=== PATIENT | female | born 1935 | race Caucasian/White ===

== ENCOUNTER 2018-08-29 14:16 | Emergency (ER) | payer MEDICARE ==
[~2018-08-29] VITALS: Ht 167.6 cm; Wt 97.5 kg
[2018-08-29] MEDS ORDERED: AMLODIPINE BESY10 MG PO (14:43)
[2018-08-29] MEDS ORDERED: HYDROCHLOROTHIA25 M1 PO (14:43)
[2018-08-29] MEDS ORDERED: LOPRESSOR25 PO (14:43)
[2018-08-29] MEDS ORDERED: ECOTRIN325 MG PO (14:44)
[2018-08-29] MEDS ORDERED: FISH OIL 1,001000 M2 PO (14:44)
[2018-08-29] MEDS ORDERED: CRESTOR20 MG PO (14:44)
[2018-08-29] MEDS ORDERED: VITAMIN E400 UNIT PO (14:47)
[2018-08-29] MEDS ORDERED: VITAMIN D1000 UNI1 PO (14:48)
[2018-08-29] MEDS ORDERED: VITAMIN B-12500 MCG PO (14:48)
[2018-08-29] MEDS ORDERED: BETA CAROT10000 UNIT PO (14:48)
[2018-08-29] MEDS ORDERED: CALCIUM PO (14:49)
[2018-08-29] MEDS ORDERED: GARLIC1 EACH PO (14:50)
[2018-08-29] MEDS ORDERED: IRON325 PO (14:50)
[2018-08-29 15:32] LABS: ABSOLUTE BASOPHILS 0.1 thou/uL (0.0-0.2); ABSOLUTE LYMPHOCYTES 1.6 thou/uL (0.8-5.3); ABSOLUTE MONOCYTES 0.9 thou/uL (0.0-1.2); ABSOLUTE NEUTROPHILS 6.7 thou/uL (1.6-8.1); BASOPHILS 1.2 %; EOSINOPHILS 0.5 %; HEMATOCRIT 38.9 % (37.0-47.0); LYMPHOCYTES 17.2 %; MCH 30.1 pg (26.0-34.0); MCHC 33.5 g/dL (28.0-37.0); MCV 89.8 fL (80.0-100.0); MONOCYTES 9.2 %; MPV 7.4 fl. (7.2-11.1); NUCLEATED RBCS 0 /100WBC; PLATELET COUNT* 322 thou/uL (150-400); POLYS 71.9 %; RBC 4.33 mil/uL (4.20-5.00); WBC 9.3 thou/uL (4.0-11.0)
[2018-08-29 15:48] LABS: ANION GAP 12 mmol/L (7-16); BUN 19 mg/dL (7-18); CALCIUM 9.6 mg/dL (8.5-10.1); CHLORIDE 94 mmol/L (98-107); CO2 29 mmol/L (21-32); CREATININE 0.9 mg/dL (0.6-1.3); GLUCOSE 129 mg/dL (70-99); SODIUM 135 mmol/L (136-145)
[2018-08-29 15:57] LABS: ALKALINE PHOSPHATASE 60 U/L (46-116); SGOT 27 U/L (15-37); SGPT 30 U/L (30-65); TOTAL BILIRUBIN 0.4 mg/dL (<0.1-1.0); TOTAL PROTEIN 8.4 g/dL (6.4-8.2); TROPONIN-I LEVEL <0.06 ng/mL (<0.06)
[2018-08-29] MEDS ORDERED: AMITRIPTYLINE H25 M2 PO (16:49)
[2018-08-29 17:07] VITALS: BP 168/75
--- NOTE | 2018-09-01 13:37 | EKG ---
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 : 1935 Requested By: Melina Dunlap Order Number: [id number] MD: Jamaal Rivers Measurements Intervals [place] Rate: 83 P: 50 CA: 206 QRS: -66 QRSD: 114 T: 67 QT: 406 QTc: 477 Interpretive Statements Sinus rhythm Atrial premature complex Left anterior fascicular block Consider anterior infarct Compared to ECG 08/26/2007 11:02:43 Atrial premature complex(es) now present Electronically Signed On 09-01-2018 13:37:43 CDT by Jamaal Rivers [email or web address] <ELECTRONICALLY SIGNED> By: Jamaal Rivers MD, [facility] 09/01/18 1337 1527 1527 Jamaal Rivers MD, [facility] /EPI
== END 2018-08-29 17:10 | disposition home or self-care (01) ==
LOC: M.ERS 14:16
PROVIDERS: Personal Emergency Response Attendant
DX: I16.0 Hypertensive urgency (principal); G47.00 Insomnia, unspecified; Z91.040 Latex allergy status; Z88.8 Allergy status to other drugs, medicaments and biological substances; Z90.11 Acquired absence of right breast and nipple; Z96.652 Presence of left artificial knee joint